=== PATIENT | male | born 1995 | race Two or more races ===

== ENCOUNTER 2017-04-10 19:00 | Emergency (ER) | payer SELFPAY ==
[~2017-04-10] VITALS: Ht 175.3 cm; Wt 72.0 kg
[2017-04-10 19:59] VITALS: BP 121/74
== END 2017-04-10 20:01 | disposition home or self-care (01) ==
LOC: ED 19:40
DX: S60.052A Contusion of left little finger without damage to nail, initial encounter (principal); W22.8XXA Striking against or struck by other objects, initial encounter; Y93.89 Activity, other specified; Y92.098 Other place in other non-institutional residence as the place of occurrence of the external cause; Y99.8 Other external cause status
CPT/HCPCS: 29130

== ENCOUNTER 2017-05-15 04:57 | Emergency (ER) | payer SELFPAY ==
[~2017-05-15] VITALS: Ht 177.8 cm; Wt 71.0 kg
[2017-05-15] MEDS ORDERED: HYDROcodone/APAP 5/325 TABLET PO STA (05:14)
[2017-05-15] MEDS ORDERED: HYDROcodone/APAP 5/325 TABLET ONE (05:22)
[2017-05-15 06:04] VITALS: BP 126/88
== END 2017-05-15 06:07 | disposition home or self-care (01) ==
LOC: ED 05:12
DX: S93.525A Sprain of metatarsophalangeal joint of left lesser toe(s), initial encounter (principal); X58.XXXA Exposure to other specified factors, initial encounter; Y93.89 Activity, other specified; Y99.8 Other external cause status; Y92.410 Unspecified street and highway as the place of occurrence of the external cause

== ENCOUNTER 2017-12-12 18:09 | Emergency (ER) | payer OTHER ==
[~2017-12-12] VITALS: Ht 177.8 cm; Wt 75.1 kg
[~2017-12-12 18:09] MED LIST: [UNRECOGNIZED DRUG - OTHER]; [UNRECOGNIZED DRUG - OTHER] PO
[2017-12-12 18:12] VITALS: BP 130/80
[2017-12-12] MEDS ORDERED: ACETAMINOPHEN 325 MG TABLET ONE (18:38)
[2017-12-12] MEDS ORDERED: ACETAMINOPHEN 325 MG TABLET PO ONE (19:00)
== END 2017-12-12 19:33 | disposition home or self-care (01) ==
LOC: ED 19:15
DX: S62.346A Nondisplaced fracture of base of fifth metacarpal bone, right hand, initial encounter for closed fracture (principal); G89.11 Acute pain due to trauma; X58.XXXA Exposure to other specified factors, initial encounter; Y93.89 Activity, other specified; Y92.89 Other specified places as the place of occurrence of the external cause; Y99.8 Other external cause status
CPT/HCPCS: 29125; 99284

== ENCOUNTER 2018-03-19 10:46 | Emergency (ER) | payer MEDICAID ==
[~2018-03-19] VITALS: Ht 177.8 cm; Wt 66.0 kg
[2018-03-19 12:00] LABS: BASOPHILS # (AUTO) 0.01 x10^3/uL (0-0.1); BASOPHILS % (AUTO) 0 % (0-1); EOSINOPHILS % (AUTO) 0 % (1-7); LYMPHOCYTES # (AUTO) 0.85 x10^3/uL (1-3.4); LYMPHOCYTES % (AUTO) 15 % (22-44); MD NO; MEAN CORPUSCULAR HEMOGLOBIN 27.4 pg (27.5-34.5); MEAN CORPUSCULAR HGB CONC 33.7 g/dL (33.2-36.2); MEAN CORPUSCULAR VOLUME 81.1 fL (81-97); MEAN PLATELET VOLUME 8.1 fL (7.4-10.4); MONOCYTES # (AUTO) 0.19 x10^3/uL (0.2-0.8); MONOCYTES % (AUTO) 3 % (2-9); NEUTROPHILS # (AUTO) 4.46 x10^3/uL (1.8-6.8); NEUTROPHILS % (AUTO) 81 % (42-75); PLATELET COUNT 387 x10^3/uL (130-400); RED BLOOD COUNT 5.01 x10^6/uL (4.38-5.82); RED CELL DISTRIBUTION WIDTH 13.1 % (9.4-14.8)
[2018-03-19] MEDS ORDERED: SODIUM CHLORIDE 0.9% 1,000ML IVBOLUS ONE (12:00)
[2018-03-19 12:13] LABS: ALANINE AMINOTRANSFERASE 21 U/L (12-78); ALBUMIN 4.2 g/dL (3.4-5.0); ANION GAP 10 mmol/L (5-15); CALCIUM 8.6 mg/dL (8.5-10.1); CHLORIDE 109 mmol/L (98-107); CREATININE 1.12 mg/dL (0.7-1.3)
[2018-03-19 12:15] LABS: ALKALINE PHOSPHATASE 71 U/L (45-117); BILIRUBIN,TOTAL 0.9 mg/dL (0.2-1.0); TOTAL PROTEIN 7.6 g/dL (6.4-8.2)
[2018-03-19 13:41] LABS: AMPHETAMINE SCREEN, URINE Negative (Negative); BARBITURATE SCREEN, URINE Negative (Negative); BENZODIAZEPINE SCREEN, URINE Negative (Negative); CANNABINOID SCREEN, URINE Negative (Negative); COCAINE SCREEN, URINE Negative (Negative); METHADONE SCREEN, URINE Negative (Negative); OPIATE SCREEN, URINE Negative (Negative)
[2018-03-19 15:54] VITALS: BP 120/68
== END 2018-03-19 16:56 | disposition home or self-care (01) ==
LOC: ED 11:26
DX: T43.621A Poisoning by amphetamines, accidental (unintentional), initial encounter (principal); F16.129 Hallucinogen abuse with intoxication, unspecified; Y92.89 Other specified places as the place of occurrence of the external cause
CPT/HCPCS: 36415; 80053; 80307; 85025; 93005; 96360; 96361; 99285; J7030

== ENCOUNTER 2021-01-23 13:42 | Emergency (ER) | payer SELFPAY ==
[~2021-01-23] VITALS: Ht 160 cm; Wt 63.6 kg
--- NOTE | 2021-01-23 13:52 | NUR ---
BIB EMS AFTER PT WAS FOUND SLEEPING OUTSIDE IN [facility]. PT KEEPS SAYING "OSWALDO". NOT SAYING ANYTHING ELSE. REFUSING TO GIVE INFORMATION. HX DRUG USE. PUPILS FOR REMSA 5-6 MM NONREACTIVE. 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 SPEAKING IN FULL SENTENCES. STATES "53 LBS. YEAH" WHEN ASKED ABOUT WEIGHT. DENIES ANY COMPLAINTS TO BE IN ED. DENIES SI/HI. PT AOX3. KNOWS NAME, SOB, WHERE HE IS. UNKNOWN WHY HE IS HERE. MAKES RANDOM STATEMENTS THAT DO NOT CORRELATE WITH PT BEING IN ED. MONITORS APPLIED. EKG COMPLETED. PT RESTING ON GURNEY. NADN. VSS. WARM BLANKET PROVIDED.
--- NOTE | 2021-01-23 14:12 | NUR ---
PT RESTING ON GURNEY. NADN. ROSARIO.
[2021-01-23 14:32] LABS: BASOPHILS % (AUTO) 0 % (0-1); EOSINOPHILS % (AUTO) 0 % (1-7); LYMPHOCYTES % (AUTO) 15 % (22-44); MEAN CORPUSCULAR HEMOGLOBIN 27.5 pg (27.5-34.5); MEAN CORPUSCULAR HGB CONC 33.9 g/dL (33.2-36.2); MONOCYTES % (AUTO) 5 % (2-9); NEUTROPHILS % (AUTO) 80 % (42-75); PLATELET COUNT 372 x10^3/uL (130-400); RED BLOOD COUNT 5.08 x10^6/uL (4.38-5.82); RED CELL DISTRIBUTION WIDTH 13.1 % (9.4-14.8)
[2021-01-23 14:40] LABS: MD NO
[2021-01-23 14:41] LABS: ALANINE AMINOTRANSFERASE 29 U/L (12-78); ALBUMIN 4.3 g/dL (3.4-5.0); ANION GAP 7 mmol/L (5-15); CALCIUM 9.1 mg/dL (8.5-10.1); CHLORIDE 111 mmol/L (98-107); CREATININE 0.92 mg/dL (0.7-1.3)
[2021-01-23 14:42] LABS: SALICYLATE LEVEL < 1.7 mg/dL (2.8-20.0)
[2021-01-23 14:44] LABS: ALKALINE PHOSPHATASE 94 U/L (45-117); BILIRUBIN,TOTAL 0.3 mg/dL (0.2-1.0); TOTAL PROTEIN 7.6 g/dL (6.4-8.2)
[2021-01-23 15:08] LABS: AMPHETAMINE SCREEN, URINE Negative (Negative); BARBITURATE SCREEN, URINE Negative (Negative); BENZODIAZEPINE SCREEN, URINE Negative (Negative); CANNABINOID SCREEN, URINE Negative (Negative); COCAINE SCREEN, URINE Negative (Negative); METHADONE SCREEN, URINE Negative (Negative); OPIATE SCREEN, URINE Positive (Negative)
--- NOTE | 2021-01-23 16:14 | NUR ---
PT RESTING ON GURNEY. NADN. ROSARIO.
[2021-01-23 17:19] VITALS: BP 116/70
--- NOTE | 2021-01-23 17:20 | NUR ---
PT RESTING ON GURNEY. NADN. ROSARIO. PT CHART REVIEWED AND PLACED FOR RECHECK.
--- NOTE | 2021-01-23 17:58 | NUR ---
SPOKE W/ PT MOTHER AT [phone] AND PER MOM STATES PT DAD IS GOING TO COME BASEBALL SEWER HAND PT. PT AOX4 AT THIS TIME. DENIES SI/HI.
== END 2021-01-23 18:01 | disposition home or self-care (01) ==
LOC: ED 16:19
DX: Z00.00 Encounter for general adult medical examination without abnormal findings (principal); F11.129 Opioid abuse with intoxication, unspecified
CPT/HCPCS: 36415; 70450; 80053; 80299; 80307; 80320; 80329; 85025; 93005; 99285; G0480

== ENCOUNTER 2021-03-12 02:19 | Emergency (ER) | payer MEDICAID ==
[~2021-03-12] VITALS: Ht 177.8 cm; Wt 72.8 kg
--- NOTE | 2021-03-12 02:28 | NUR ---
PT IN RESTROOM WHEN CALLED FOR TRIAGE
[2021-03-12] MEDS ORDERED: LORazepam 1MG TABLET ONE ×2 (02:48→03:40)
--- NOTE | 2021-03-12 02:50 | NUR ---
MEDICATED PER EMAR PLACED ON PREMIX CONCRETE BATCHER- ECG OBTAINED FOR ABNORMAL RHYTHM ON PREMIX CONCRETE BATCHER WITH CARDIAC SYMPTOMS
[2021-03-12] MEDS ORDERED: LORazepam 1MG TABLET PO ONE ×2 (03:00→04:00)
--- NOTE | 2021-03-12 03:45 | NUR ---
DESPITE RECENT MEDICATION PATIENT DISCHARGED IN CARE OF FATHER PATIENT NOT NAIVE TO BENZODIAZEPINES. PATIENT/FATHER EDUCATED ON IMPORTANCE OF CESSATION OF ILLICTS. HOW TO FIND HELP (ALSO PROVIDED WITH HAND OUT OF LOCAL RESOURCES)
[2021-03-12 03:47] VITALS: BP 132/90
== END 2021-03-12 03:49 | disposition home or self-care (01) ==
LOC: ED 03:09
DX: F15.10 Other stimulant abuse, uncomplicated (principal); F41.1 Generalized anxiety disorder; R00.0 Tachycardia, unspecified
CPT/HCPCS: 93005; 99283